=== PATIENT | female | born 1950 | race Caucasian/White ===

== ENCOUNTER → 2017-09-06 | Outpatient (CLI) | payer OTHER ==
[~2017-09-06] MED LIST: CORTIS10A EACH EAR; DIOV160T8 PO
--- NOTE | 2017-09-07 11:53 | RSPPFT ---
DATE OF PROCEDURE: 09/06/17 COMMENTS: VOLUMES DYNAMIC: FVC and FEV1 mildly reduced. STATIC: FRC, TLC very mildly reduced; RV normal. FLOWS: FEV1% normal; FEF 25-75 moderately reduced. DIFFUSION: Mildly reduced. FLOW VOLUME LOOP: Combined obstructive and restrictive ventilatory pattern. IMPRESSION: Combined mild obstructive and mild restrictive ventilatory defect with a mild reduction in diffusion. There is some improvement post-bronchodilator.
== END ==
LOC: HRSP 08:10
PROVIDERS: ATTEND Internal Medicine
DX: R06.02 Shortness of breath (principal); R05 Cough
CPT/HCPCS: 94060; 94618; 94726; 94729; 95012